=== PATIENT | female | born 1985 | race Two or more races ===

== ENCOUNTER 2024-11-17 07:23 | Outpatient (CLI) | payer OTHER | END 2024-11-17 07:24 | disposition home or self-care (01) | LOC: PRENATAL 07:23 | PROVIDERS: ATTEND Obstetrics & Gynecology Maternal & Fetal Medicine | DX: O36.80X0 Pregnancy with inconclusive fetal viability, not applicable or unspecified (principal); Z36.82 Encounter for antenatal screening for nuchal translucency; O09.529 Supervision of elderly multigravida, unspecified trimester; Z3A.12 12 weeks gestation of pregnancy ==

== ENCOUNTER 2025-01-09 07:18 | Outpatient (CLI) | payer OTHER | END 2025-01-09 07:19 | disposition home or self-care (01) | LOC: PRENATAL 07:18 | PROVIDERS: ATTEND Obstetrics & Gynecology Maternal & Fetal Medicine | DX: O44.02 Complete placenta previa NOS or without hemorrhage, second trimester (principal); O09.522 Supervision of elderly multigravida, second trimester; Z3A.20 20 weeks gestation of pregnancy ==